=== PATIENT | female | born 1995 | race Caucasian/White ===

== ENCOUNTER 2024-10-20 17:02 | Emergency (ER) | payer OTHER ==
[~2024-10-20] VITALS: Ht 152.4 cm; Wt 59.0 kg
[2024-10-20] MEDS ORDERED: BCP (17:34)
[2024-10-20] MEDS ORDERED: ALDACTONE100 MG PO (17:34)
[2024-10-20 17:52] LABS: BASOPHILS ABSOLUTE AUTO 0.07 K/mm3 (0.00-0.23); BASOPHILS PERCENT AUTO 1 % (0-2); EOSINOPHILS ABSOLUTE AUTO 0.37 K/mm3 (0.00-0.68); EOSINOPHILS PERCENT AUTO 5 % (0-6); Hematocrit 41.6 % (33.0-51.0); Hemoglobin 14.4 g/dL (11.5-16.0); IMMATURE GRAN ABSOLUTE AUTO 0.01 K/mm3 (0.00-0.10); IMMATURE GRAN PERCENT AUTO 0 % (0-1); LYMPHOCYTES ABSOLUTE AUTO 2.97 K/mm3 (0.84-5.20); LYMPHOCYTES PERCENT AUTO 38 % (21-46); MONOCYTES ABSOLUTE AUTO 0.76 K/mm3 (0.16-1.47); MONOCYTES PERCENT AUTO 10 % (4-13); Mean Corpuscular HGB 30.1 pg (26.0-34.0); Mean Corpuscular HGB Conc 34.6 g/dL (31.5-36.5); Mean Corpuscular Volume 87 fL (80-100); Mean Platelet Volume 9.8 fL (9.1-12.4); NEUTROPHILS ABSOLUTE AUTO 3.68 K/mm3 (1.96-9.15); NEUTROPHILS PERCENT AUTO 47 % (41-73); Platelet Count 349 K/mm3 (150-400); RDW Coefficient Variation 11.6 % (11.7-14.2); RDW Standard Deviation 37.1 fL (35.1-46.3); Red Blood Cell Count 4.79 M/mm3 (3.80-5.20); White Blood Cell Count 7.86 K/mm3 (4.00-11.30)
[2024-10-20 18:10] LABS: Albumin, Blood 4.2 g/dL (3.4-5.0); Albumin/Globulin Ratio 1.2 (0.8-1.8); Bilirubin, Total 0.3 mg/dL (0.1-1.0); Bun/Creatinine Ratio 17.6 (12.0-20.0); Calcium, Blood 9.7 mg/dL (8.5-10.1); Creatinine, Blood 0.74 mg/dL (0.40-1.00); Globulin, Blood 3.6 g/dL (2.2-4.0); Potassium, Blood 3.7 mmol/L (3.5-5.5); Total Protein, Blood 7.8 g/dL (6.4-8.2)
[2024-10-20 18:47] LABS: Source, Urine Clean Catch
[2024-10-20 18:56] LABS: Appearance, Urine Hazy (Clear); Bilirubin, Urine Neg (Neg); Blood, Urine Neg (Neg); Glucose Qualitative, Urine Neg (Neg); Ketones, Urine Neg (Neg); Leukocyte Esterase, Urine 1+ (Neg); Nitrite, Urine Neg (Neg); Protein, Urine Neg (Neg); Specific Gravity, Urine 1.005 (1.003-1.022); Urobilinogen, Urine NORM (Normal)
[2024-10-20 19:35] LABS: Color, Urine Pale Yellow (P-Yellow)
[2024-10-20 19:36] LABS: Bacteria Many /hpf; Red Blood Cells, Urine 0-2 /hpf (0-2); Squamous Epithelial Cells Few /hpf (Few)
[2024-10-20] MEDS ORDERED: NS 1,000 ML IV SCH (20:45)
[2024-10-20] MEDS ORDERED: Trimethoprim/Sulfamethoxazole DS Tab PO ONE (20:50)
[2024-10-20] MEDS ORDERED: SULTRIDS PO (21:42)
== END 2024-10-20 21:43 | disposition home or self-care (01) ==
LOC: ER 17:02
PROVIDERS: Student in an Organized Health Care Education/Training Program
DX: N39.0 Urinary tract infection, site not specified (principal); R42 Dizziness and giddiness; R14.0 Abdominal distension (gaseous); R20.2 Paresthesia of skin; Z79.899 Other long term (current) drug therapy
CPT/HCPCS: 80053; 81001; 84703; 85025; 87086; 93005; 93010; 99284-25; A9270; J7030

== ENCOUNTER 2024-11-11 14:12 | Emergency (ER) | payer OTHER ==
[~2024-11-11] VITALS: Ht 152.4 cm; Wt 59.0 kg
[~2024-11-11 14:12] MED LIST: ALDACTONE100 MG PO; BCP; SULTRIDS PO
[2024-11-11] MEDS ORDERED: Triamcinolone Inj Susp 40 MG / ML 1ML Vial IM ONE (14:50)
[2024-11-11] MEDS ORDERED: HYDHCL25 PO (14:54)
[2024-11-11] MEDS ORDERED: CALAMINE LOTIO177 ML TOP (14:54)
== END 2024-11-11 15:16 | disposition home or self-care (01) ==
LOC: ER 14:12
DX: L23.7 Allergic contact dermatitis due to plants, except food (principal); Z79.899 Other long term (current) drug therapy
CPT/HCPCS: J3301

== ENCOUNTER 2025-05-17 10:47 | Emergency (ER) | payer OTHER ==
[~2025-05-17] VITALS: Ht 152.4 cm; Wt 58.0 kg
[~2025-05-17 10:47] MED LIST changes: +CALAMINE LOTIO177 ML TOP; +HYDHCL25 PO
[2025-05-17 11:03] LABS: Source, Urine Clean Catch
[2025-05-17 11:11] LABS: Bilirubin, Urine Neg (Neg); Color, Urine Yellow (P-Yellow); Glucose Qualitative, Urine Neg (Neg); Ketones, Urine Neg (Neg); Leukocyte Esterase, Urine 1+ (Neg); Protein, Urine Neg (Neg); Specific Gravity, Urine 1.010 (1.003-1.022); Urobilinogen, Urine NORM (Normal)
[2025-05-17 11:28] LABS: Red Blood Cells, Urine 0-2 /hpf (0-2)
[2025-05-17] MEDS ORDERED: CEPH500 PO (11:41)
== END 2025-05-17 11:45 | disposition home or self-care (01) ==
LOC: ER 10:47
PROVIDERS: Emergency Medicine
DX: N39.0 Urinary tract infection, site not specified (principal); Z88.0 Allergy status to penicillin; Z79.899 Other long term (current) drug therapy
CPT/HCPCS: 81001; 81025; 87086; 99283